=== PATIENT | female | born 1975 | race Caucasian/White ===

== ENCOUNTER 2016-10-13 11:13 | Outpatient (CLI) | payer OTHER ==
[~2016-10-13 11:13] MED LIST: Iopamidol 370 76% 100 ML VIAL ONE
--- NOTE | 2016-10-13 14:17 | CT ---
CT ABDOMEN AND PELVIS WITH ORAL AND IV CONTRAST: HISTORY: Stage IV breast cancer, right upper quadrant pain. FINDINGS: Comparison is made with the exam of 08/22/15. The lung bases are clear. Changes of diffuse fatty infiltration of the liver area again noted. No hepatic mass is seen. The spleen, pancreas, adrenal glands, and kidneys are normal. No calcified g allstones are seen. No free air, free fluid, or lymphadenopathy is noted in the abdomen or pelvis. There are vascular c alcifications without evidence of aneurysmal dilatation of the abdominal aorta. Uterus and ovaries are present. The small bowel loops are not abnormally dilated. There is fecal material in the colo n. Extensive bony metastases are again noted. Bilateral L5 pars articular defects are again seen. The patient is status post appendectomy. IMPRESSION: 1. No evidence of acute process. 2. Fatty liver. 3. Osseous metastatic disease. POS: [facility]
== END 2016-10-13 11:14 | disposition home or self-care (01) ==
LOC: MADCT 11:13
PROVIDERS: ATTEND Internal Medicine
DX: R10.9 Unspecified abdominal pain (principal); K76.0 Fatty (change of) liver, not elsewhere classified
CPT/HCPCS: 74177

== ENCOUNTER 2017-01-21 08:10 | Outpatient (CLI) | payer OTHER ==
[2017-01-21 08:43] LABS: #Basophils 0.1 thou/uL (0.0-0.2); #Eosinphils 0.1 thou/uL (0.0-0.7); #Lymphocytes 1.2 thou/uL (1.20-3.40); #Monocytes 0.4 thou/uL (0.11-0.59); #Neutrophils 1.7 thou/uL (1.40-6.50); %Basophils 1.9 % (0.0-1.0); %Eosinophils 3.2 % (0.0-10.0); Hemoglobin 10.9 g/dL (12.0-16.0); Mean Corpuscular Hemoglobin 30.5 pg (27.0-31.0); Mean Corpuscular Volume 92.4 fl (81.0-99.0); Mean Platelet Volume 7.1 fL (7.4-10.4); Platelet Count 250 thou/uL (130-400); RBC Distribution Width 12.7 % (11.5-14.5); Red Blood Cell (RBC) Count 3.58 mill/uL (4.20-5.40); White Blood Cell (WBC) Count 3.6 thou/uL (4.8-10.8)
[2017-01-21 08:56] LABS: INR-International Normal Ratio 0.9; PTT 29.6 SEC (22.9-36.1); Prothrombin Time 12.9 SEC (12.0-14.7)
[2017-01-21 08:59] LABS: ALT (SGPT) 19 U/L (8-55); AST (SGOT) 19 U/L (5-34); Albumin 3.8 g/dL (3.5-5.0); Alkaline Phosphatase 52 U/L (40-150); Anion Gap 14 mmol/L (10-20); BUN (Urea Nitrogen) 14 mg/dL (7.0-18.7); Bilirubin, Total 0.3 mg/dL (0.2-1.2); Calc. Creatinine Clearance 0 mL/min (70-130); Calcium 9.6 mg/dL (7.8-10.44); Carbon Dioxide 28 mmol/L (22-29); Cardiac Risk 4.5 (Less than 4.5); Chloride 103 mmol/L (98-107); Cholesterol 227 mg/dl (< 200 Desired); Estimated GFR-MDRD 90; Globulin 3.3 g/dL (2.4-3.5); Glucose 90 mg/dL (70-105); HDL Cholesterol 50 mg/dL (>60 Neg Risk); LDL Cholesterol, Calculated 144 mg/dL; Potassium 4.8 mmol/L (3.5-5.1); Protein, Total 7.1 g/dL (6.0-8.3); Sodium 140 mmol/L (136-145); Triglycerides 164 mg/dL (Less than 150)
[2017-01-21 09:21] LABS: Free T4 (Free Thyroxine) 0.91 ng/dL (0.70-1.48); Thyroid Stimulating Hormone 1.2308 uIU/mL (0.35-4.94)
[2017-01-21 16:53] LABS: Iron 56 ug/dL (50-170); Iron Binding Capacity, Total 320 mcg/dL (265-497)
[2017-01-21 17:13] LABS: Ferritin 173.37 ng/mL (10-291)
== END 2017-01-21 08:11 | disposition home or self-care (01) ==
LOC: MADLAB 08:10
PROVIDERS: ATTEND Internal Medicine
DX: T14.8 Other injury of unspecified body region (principal); E03.9 Hypothyroidism, unspecified
CPT/HCPCS: 36415; 80053; 80061; 82607; 82728; 83540; 83550; 84439; 84443; 85025; 85610; 85730

== ENCOUNTER 2017-05-26 18:14 | Emergency (ER) | payer OTHER ==
[2017-05-26] MEDS ORDERED: Ketorolac Tromethamine 60 MG/2 ML VIAL ONE (18:19)
[2017-05-26] MEDS ORDERED: Diazepam 5 MG TAB ONE ×2 (18:19→19:47)
[2017-05-26] MEDS ORDERED: MORPHINE 10 MG/ML SYRINGE ONE (18:23)
[2017-05-26] MEDS ORDERED: Ondansetron ODT 4 MG TAB ONE (18:24)
[2017-05-26] MEDS ORDERED: diphenhydrAMINE 25 MG CAP ONE (19:47)
== END 2017-05-26 19:50 | disposition home or self-care (01) ==
LOC: MADERS 18:14
DX: M54.5 Low back pain (principal); I10 Essential (primary) hypertension; F41.9 Anxiety disorder, unspecified; F32.9 Major depressive disorder, single episode, unspecified; Z87.891 Personal history of nicotine dependence; Z79.899 Other long term (current) drug therapy
CPT/HCPCS: 96372; J1885; J2270; Q0162

== ENCOUNTER 2017-09-18 20:07 | Emergency (ER) | payer OTHER ==
[2017-09-18] MEDS ORDERED: MORPHINE 10 MG/ML SYRINGE ONE (21:58)
[2017-09-18] MEDS ORDERED: Diazepam 5 MG TAB ONE (21:58)
[2017-09-18] MEDS ORDERED: Ketorolac Tromethamine 30 MG/ML VIAL ONE (21:59)
[2017-09-18] MEDS ORDERED: Ondansetron HCl/PF 4 MG/2 ML Vial ONE (21:59)
--- NOTE | 2017-09-18 22:02 | RAD ---
FRONTAL RADIOGRAPH CHEST: 09/18/17 COMPARISON: 12/22/16 HISTORY: Metastatic disease. FINDINGS: No pneumothorax, pleural fluid, focal consolidation, or alveolar edema. Heart and mediastinal contour s appear grossly unremarkable. There are multiple focal sclerotic lesions within the proximal left humerus suggesting osseous metast atic disease. IMPRESSION: Osseous metastatic disease suspected. CT Chest could assess for pulmonary parenchymal metastatic dise ase. No focal consolidation or alveolar edema. POS: [facility]
[2017-09-18 22:04] LABS: #Basophils 0.1 thou/uL (0.0-0.2); #Eosinphils 0.2 thou/uL (0.0-0.7); #Lymphocytes 1.7 thou/uL (1.20-3.40); #Monocytes 0.7 thou/uL (0.11-0.59); #Neutrophils 3.3 thou/uL (1.40-6.50); %Basophils 2.1 % (0.0-1.0); %Eosinophils 2.6 % (0.0-10.0); %Lymphocytes 28.7 % (21.0-51.0); %Monocytes 11.5 % (0.0-10.0); %Neutrophils 55.1 % (42.0-75.0); Hemoglobin 11.6 g/dL (12.0-16.0); Mean Corpuscular Hemoglobin 30.3 pg (27.0-31.0); Mean Corpuscular Volume 91.9 fl (81.0-99.0); Mean Platelet Volume 7.2 fL (7.4-10.4); Platelet Count 260 thou/uL (130-400); RBC Distribution Width 12.2 % (11.5-14.5); Red Blood Cell (RBC) Count 3.83 mill/uL (4.20-5.40); White Blood Cell (WBC) Count 6.1 thou/uL (4.8-10.8)
[2017-09-18 22:15] LABS: INR-International Normal Ratio 0.9; PTT 28.6 SEC (22.9-36.1); Prothrombin Time 12.3 SEC (12.0-14.7)
[2017-09-18 22:30] LABS: ALT (SGPT) 17 U/L (8-55); AST (SGOT) 29 U/L (5-34); Albumin 4.5 g/dL (3.5-5.0); Alkaline Phosphatase 63 U/L (40-150); Anion Gap 18 mmol/L (10-20); BUN (Urea Nitrogen) 12 mg/dL (7.0-18.7); Bilirubin, Total 0.2 mg/dL (0.2-1.2); CK (CPK) 75 U/L (29-168); Calc. Creatinine Clearance 0 mL/min (70-130); Calcium 9.6 mg/dL (7.8-10.44); Carbon Dioxide 22 mmol/L (22-29); Chloride 102 mmol/L (98-107); Estimated GFR-MDRD 88; Globulin 3.3 g/dL (2.4-3.5); Glucose 96 mg/dL (70-105); Potassium 4.3 mmol/L (3.5-5.1); Protein, Total 7.8 g/dL (6.0-8.3); Sodium 138 mmol/L (136-145)
[2017-09-19] MEDS ORDERED: MORPHINE 10 MG/ML SYRINGE ONE (00:48)
== END 2017-09-19 02:16 | disposition short-term general hospital (02) ==
LOC: MADERS 20:07
DX: C50.919 Malignant neoplasm of unspecified site of unspecified female breast (principal); C79.51 Secondary malignant neoplasm of bone; I10 Essential (primary) hypertension; F41.9 Anxiety disorder, unspecified; F32.9 Major depressive disorder, single episode, unspecified; Z79.899 Other long term (current) drug therapy
CPT/HCPCS: 71045; 80053; 82550; 83880; 85025; 85610; 85730; 93005; 94760; 96374; 96375; 96376; J1885; J2270; J2405

== ENCOUNTER 2018-01-06 11:50 | Emergency (ER) | payer OTHER ==
--- NOTE | 2018-01-06 13:05 | RAD ---
RIGHT FOOT THREE VIEWS: HISTORY: Right foot pain with trauma. COMPARISON: 06/13/2016 FINDINGS: Three views of the right foot show no evidence of acute fracture or dislocation. No degenerative marcial nges are seen. No soft tissue swelling is present. IMPRESSION: No evidence of acute osseous abnormality. POS: [facility]
== END 2018-01-06 13:29 | disposition home or self-care (01) ==
LOC: MADERS 11:50
DX: M79.671 Pain in right foot (principal); I10 Essential (primary) hypertension; F41.9 Anxiety disorder, unspecified; F32.9 Major depressive disorder, single episode, unspecified; Z79.899 Other long term (current) drug therapy

== ENCOUNTER 2018-04-04 08:40 | Outpatient (CLI) | payer OTHER ==
[2018-04-04 09:39] LABS: ALT (SGPT) 15 U/L (8-55); AST (SGOT) 16 U/L (5-34); Albumin 4.2 g/dL (3.5-5.0); Alkaline Phosphatase 49 U/L (40-150); Anion Gap 13 mmol/L (10-20); BUN (Urea Nitrogen) 11 mg/dL (7.0-18.7); Bilirubin, Total 0.3 mg/dL (0.2-1.2); Calc. Creatinine Clearance 0 mL/min (70-130); Calcium 9.6 mg/dL (7.8-10.44); Carbon Dioxide 27 mmol/L (22-29); Chloride 102 mmol/L (98-107); Estimated GFR-MDRD 87; Globulin 2.9 g/dL (2.4-3.5); Glucose 87 mg/dL (70-105); Magnesium 2.2 mg/dL (1.6-2.6); Potassium 4.2 mmol/L (3.5-5.1); Protein, Total 7.1 g/dL (6.0-8.3); Sodium 138 mmol/L (136-145)
[2018-04-04 10:02] LABS: Band 1 % (5-11); Hemoglobin 10.1 g/dL (12.0-16.0); Lymphocytes 36 % (21-51); MDiff Complete? YES; Manual Diff?? YES; Mean Corpuscular HGB CONC 33.7 g/dL (32.0-36.0); Mean Platelet Volume 5.9 fL (7.4-10.4); Monocytes 14 % (0-10); Neutrophil 42 % (42-75); Platelet Count 253 thou/uL (130-400); RBC Distribution Width 13.5 % (11.5-14.5); Red Blood Cell (RBC) Count 3.03 mill/uL (4.20-5.40); White Blood Cell (WBC) Count 3.2 thou/uL (4.8-10.8)
[2018-04-04 10:03] LABS: Anisocytosis SLIGHT = 6-15 cells (100X) (0-5/hpf); Eosinophils 7 % (0-10); PLT Morphology Comment Appears Adequate
== END 2018-04-04 08:41 | disposition home or self-care (01) ==
LOC: MADLAB 08:40
DX: C50.919 Malignant neoplasm of unspecified site of unspecified female breast (principal)
CPT/HCPCS: 36415; 80053; 83735; 85025

== ENCOUNTER 2018-05-03 09:11 | Outpatient (CLI) | payer OTHER ==
[2018-05-03 10:37] LABS: Hemoglobin 10.1 g/dL (12.0-16.0); Manual Diff?? YES; Mean Corpuscular HGB CONC 34.5 g/dL (32.0-36.0); Mean Corpuscular Hemoglobin 33.4 pg (27.0-31.0); Mean Corpuscular Volume 96.7 fL (78.0-98.0); Mean Platelet Volume 6.1 fL (7.4-10.4); Platelet Count 279 thou/uL (130-400); RBC Distribution Width 14.2 % (11.5-14.5); Red Blood Cell (RBC) Count 3.04 mill/uL (4.20-5.40); White Blood Cell (WBC) Count 2.1 thou/uL (4.8-10.8)
[2018-05-03 10:38] LABS: Eosinophils 3 % (0-10); Lymphocytes 42 % (21-51); MDiff Complete? YES; Monocytes 13 % (0-10); Neutrophil 42 % (42-75)
[2018-05-03 10:40] LABS: Anisocytosis SLIGHT = 6-15 cells (100X) (0-5/hpf); Poikilocytosis SLIGHT = 6-15 cells (100X) (0-5/hpf)
[2018-05-03 10:41] LABS: PLT Morphology Comment Appears Adequate
== END 2018-05-03 09:12 | disposition home or self-care (01) ==
LOC: MADLAB 09:11
PROVIDERS: ATTEND Internal Medicine
DX: C50.919 Malignant neoplasm of unspecified site of unspecified female breast (principal)
CPT/HCPCS: 36415; 85025

== ENCOUNTER 2018-05-10 07:33 | Outpatient (CLI) | payer OTHER ==
[2018-05-10 09:21] LABS: Hemoglobin 10.2 g/dL (12.0-16.0); Mean Corpuscular HGB CONC 33.4 g/dL (32.0-36.0); Mean Corpuscular Hemoglobin 32.6 pg (27.0-31.0); Mean Corpuscular Volume 97.6 fL (78.0-98.0); Mean Platelet Volume 6.6 fL (7.4-10.4); Platelet Count 275 thou/uL (130-400); RBC Distribution Width 14.4 % (11.5-14.5); Red Blood Cell (RBC) Count 3.14 mill/uL (4.20-5.40); White Blood Cell (WBC) Count 2.9 thou/uL (4.8-10.8)
[2018-05-10 09:22] LABS: Band 2 % (5-11); Eosinophils 1 % (0-10); Lymphocytes 27 % (21-51); MDiff Complete? YES; Manual Diff?? YES; Monocytes 8 % (0-10); Neutrophil 62 % (42-75)
[2018-05-10 09:23] LABS: Anisocytosis SLIGHT = 6-15 cells (100X) (0-5/hpf); PLT Morphology Comment Appears Adequate
== END 2018-05-10 07:34 | disposition home or self-care (01) ==
LOC: MADLAB 07:33
PROVIDERS: ATTEND Internal Medicine
DX: C50.919 Malignant neoplasm of unspecified site of unspecified female breast (principal)
CPT/HCPCS: 36415; 85025

== ENCOUNTER 2018-07-11 11:51 | Outpatient (CLI) | payer OTHER ==
[2018-07-11 12:18] LABS: Hemoglobin 10.8 g/dL (12.0-16.0); Mean Corpuscular HGB CONC 34.2 g/dL (32.0-36.0); Mean Corpuscular Hemoglobin 33.4 pg (27.0-31.0); Mean Corpuscular Volume 97.5 fL (78.0-98.0); Mean Platelet Volume 5.4 fL (7.4-10.4); Platelet Count 264 thou/uL (130-400); RBC Distribution Width 14.5 % (11.5-14.5); Red Blood Cell (RBC) Count 3.25 mill/uL (4.20-5.40); White Blood Cell (WBC) Count 2.1 thou/uL (4.8-10.8)
[2018-07-11 13:11] LABS: Manual Diff?? YES
[2018-07-11 13:12] LABS: Anisocytosis SLIGHT = 6-15 cells (100X) (0-5/hpf); Band 2 % (5-11); Eosinophils 4 % (0-10); Lymphocytes 46 % (21-51); MDiff Complete? YES; Monocytes 14 % (0-10); Neutrophil 34 % (42-75); Nucleated RBC 2 % (0); PLT Morphology Comment Appears Adequate
== END 2018-07-11 11:52 | disposition home or self-care (01) ==
LOC: MADLAB 11:51
PROVIDERS: ATTEND Internal Medicine
DX: C50.919 Malignant neoplasm of unspecified site of unspecified female breast (principal)
CPT/HCPCS: 36415; 85025

== ENCOUNTER 2018-07-18 07:33 | Outpatient (CLI) | payer OTHER ==
[2018-07-18 08:20] LABS: Hemoglobin 11.7 g/dL (12.0-16.0); Mean Corpuscular HGB CONC 32.9 g/dL (32.0-36.0); Mean Corpuscular Hemoglobin 32.6 pg (27.0-31.0); Mean Platelet Volume 6.3 fL (7.4-10.4); Platelet Count 301 thou/uL (130-400); RBC Distribution Width 14.2 % (11.5-14.5); Red Blood Cell (RBC) Count 3.57 mill/uL (4.20-5.40); White Blood Cell (WBC) Count 3.1 thou/uL (4.8-10.8)
[2018-07-18 09:24] LABS: MDiff Complete? YES; Manual Diff?? YES
[2018-07-18 09:25] LABS: Anisocytosis SLIGHT = 6-15 cells (100X) (0-5/hpf); Band 2 % (5-11); Eosinophils 2 % (0-10); Lymphocytes 42 % (21-51); Monocytes 11 % (0-10); Neutrophil 43 % (42-75); Platelet Morphology Comment Appears Adequate
== END 2018-07-18 07:34 | disposition home or self-care (01) ==
LOC: MADLAB 07:33
PROVIDERS: ATTEND Internal Medicine
DX: C50.919 Malignant neoplasm of unspecified site of unspecified female breast (principal)
CPT/HCPCS: 36415; 85025

== ENCOUNTER 2020-01-08 10:57 | Emergency (ER) | payer OTHER ==
[2020-01-08] MEDS ORDERED: Clindamycin/D5W 900 mg/50 ml Premix Bag ONE ×2 (12:21→20:49)
[2020-01-08 12:27] LABS: #Lymphocytes 0.6 thou/uL (1.20-3.40); #Monocytes 0.3 thou/uL (0.11-0.59); #Neutrophils 2.7 thou/uL (1.40-6.50); %Eosinophils 0.8 % (0.0-10.0); %Lymphocytes 16.1 % (21.0-51.0); %Monocytes 8.2 % (0.0-10.0); %Neutrophils 73.8 % (42.0-75.0); Hemoglobin 11.1 g/dL (12.0-16.0); Mean Corpuscular HGB CONC 32.6 g/dL (32.0-36.0); Mean Corpuscular Hemoglobin 32.4 pg (27.0-31.0); Mean Corpuscular Volume 99.4 fL (78.0-98.0); Mean Platelet Volume 6.1 fL (7.4-10.4); Platelet Count 227 thou/uL (130-400); Red Blood Cell (RBC) Count 3.44 mill/uL (4.20-5.40); White Blood Cell (WBC) Count 3.6 thou/uL (4.8-10.8)
[2020-01-08] MEDS ORDERED: Cefepime 2 GM VIAL ONE ×2 (12:33→21:15)
[2020-01-08] MEDS ORDERED: Sodium Chloride 0.9% 100 ML ONE ×2 (12:33→21:15)
[2020-01-08] MEDS ORDERED: Morphine 4 MG/ML VIAL ONE ×3 (12:33→21:00)
[2020-01-08] MEDS ORDERED: diphenhydrAMINE 50 MG/ML VIAL ONE (12:34)
[2020-01-08 12:43] LABS: ALT (SGPT) 20 U/L (8-55); AST (SGOT) 18 U/L (5-34); Albumin 4.6 g/dL (3.5-5.0); Alkaline Phosphatase 40 U/L (40-110); Anion Gap 16 mmol/L (10-20); BUN (Urea Nitrogen) 11 mg/dL (7.0-18.7); Bilirubin, Total 0.4 mg/dL (0.2-1.2); Calc. Creatinine Clearance 0 mL/min (70-130); Calcium 9.4 mg/dL (7.8-10.44); Carbon Dioxide 23 mmol/L (22-29); Chloride 102 mmol/L (98-107); Estimated GFR-MDRD 78; Globulin 3.1 g/dL (2.4-3.5); Glucose 94 mg/dL (70-105); Potassium 4.1 mmol/L (3.5-5.1); Protein, Total 7.7 g/dL (6.0-8.3); Sodium 137 mmol/L (136-145)
[2020-01-08] MEDS ORDERED: Ondansetron PF 4 MG/2 ML Vial ONE ×2 (12:45→21:04)
[2020-01-08] MEDS ORDERED: Acetaminophen 500 MG TAB ONE (12:45)
[2020-01-08] MEDS ORDERED: Vancomycin HCl 750 MG VIAL ONE (13:50)
[2020-01-08] MEDS ORDERED: Sodium Chloride 0.9% 1,000 ML ONE (16:06)
[2020-01-08] MEDS ORDERED: traZODone HCl 50 MG TAB ONE (21:00)
== END 2020-01-08 22:37 | disposition short-term general hospital (02) ==
LOC: MADERS 10:57
DX: A41.9 Sepsis, unspecified organism (principal); N61.0 Mastitis without abscess; L03.313 Cellulitis of chest wall; C79.51 Secondary malignant neoplasm of bone; F41.9 Anxiety disorder, unspecified; F32.9 Major depressive disorder, single episode, unspecified; Z79.899 Other long term (current) drug therapy
CPT/HCPCS: 80053; 83605; 85025; 87040; 96361; 96365; 96366; 96367; 96375; 96376; J0692; J1200; J2270; J2405; J3370; J3490; J7050

== ENCOUNTER 2020-05-07 11:45 | Outpatient (CLI) | payer OTHER | END 2020-05-07 11:46 | disposition home or self-care (01) | LOC: MADEKG 11:45 | PROVIDERS: ATTEND Anesthesiology | DX: G89.3 Neoplasm related pain (acute) (chronic) (principal) | CPT/HCPCS: 93005; 93010 ==

== ENCOUNTER 2021-10-31 21:13 | Emergency (ER) | payer BC ==
[~2021-10-31 21:13] MED LIST changes: -Iopamidol 370 76% 100 ML VIAL ONE; +Iopamidol 370 76% 125 ML VIAL FS ONE; +Sodium Chloride 0.9% 100 ML BAG ONE
[2021-10-31] MEDS ORDERED: Sodium Chloride 0.9% 1,000 ML ONE (21:46)
[2021-10-31] MEDS ORDERED: methylPREDNISolone Sod Succ/PF 125 MG/2 ML VIAL ONE (21:46)
[2021-10-31] MEDS ORDERED: Famotidine/PF 20 mg/2ml Vial ONE (21:46)
[2021-10-31] MEDS ORDERED: diphenhydrAMINE 50 MG/ML VIAL ONE (21:46)
[2021-10-31 21:54] LABS: #Eosinphils 0.1 thou/uL (0.0-0.7); #Lymphocytes 0.7 thou/uL (1.20-3.40); #Monocytes 0.2 thou/uL (0.11-0.59); #Neutrophils 2.2 thou/uL (1.40-6.50); %Basophils 1.5 % (0.0-1.0); %Lymphocytes 20.9 % (21.0-51.0); %Monocytes 6.8 % (0.0-10.0); %Neutrophils 68.9 % (42.0-75.0); Hemoglobin 10.8 g/dL (12.0-16.0); Mean Corpuscular HGB CONC 35.5 g/dL (32.0-36.0); Mean Corpuscular Hemoglobin 35.7 pg (27.0-31.0); Mean Corpuscular Volume 100.5 fL (78.0-98.0); Mean Platelet Volume 7.3 fL (7.4-10.4); Platelet Count 217 thou/uL (130-400); RBC Distribution Width 12.8 % (11.5-14.5); RBC Morphology Normal; Red Blood Cell (RBC) Count 3.03 mill/uL (4.20-5.40); White Blood Cell (WBC) Count 3.1 thou/uL (4.8-10.8)
[2021-10-31 21:58] LABS: AST (SGOT) 51 U/L (5-34); Anion Gap 19 mmol/L (10-20); Bilirubin, Total 0.3 mg/dL (0.2-1.2); Calcium 9.4 mg/dL (7.8-10.44); Carbon Dioxide 20 mmol/L (22-29); Chloride 106 mmol/L (98-107); INR-International Normal Ratio 0.9; PTT 27.8 sec (22.9-36.1); Potassium 4.1 mmol/L (3.5-5.1); Protein, Total 7.3 g/dL (6.0-8.3); Prothrombin Time 12.1 sec (12.0-14.7); Sodium 141 mmol/L (136-145)
[2021-10-31 22:01] LABS: D-Dimer Test 0.57 *mcg/mL (0.27-0.43)
[2021-10-31 22:11] LABS: ALT (SGPT) 59 U/L (8-55); Albumin 4.2 g/dL (3.5-5.0); Alkaline Phosphatase 70 U/L (40-110); BUN (Urea Nitrogen) 12 mg/dL (7.0-18.7); CK (CPK) 115 U/L (29-168); Calc. Creatinine Clearance 0 mL/min (70-130); Globulin 3.1 g/dL (2.4-3.5); Glucose 151 mg/dL (70-105)
[2021-10-31 22:13] LABS: CKMB 3.7 ng/mL (0-6.6)
[2021-10-31] MEDS ORDERED: Aspirin Chewable 81 MG TAB ONE (22:24)
== END 2021-11-01 00:49 | disposition short-term general hospital (02) ==
LOC: MADERS 21:13
DX: R07.89 Other chest pain (principal); R79.89 Other specified abnormal findings of blood chemistry; C50.919 Malignant neoplasm of unspecified site of unspecified female breast; I10 Essential (primary) hypertension; Z87.891 Personal history of nicotine dependence; Z79.899 Other long term (current) drug therapy
CPT/HCPCS: 71045; 71275; 80053; 82550; 82553; 83880; 84484; 85025; 85379; 85610; 85730; 93005; 96374; 96375; J1200; J2930; J7050; Q9967; S0028

== ENCOUNTER 2021-11-18 06:22 | Emergency (ER) | payer BC ==
[2021-11-18] MEDS ORDERED: Ondansetron ODT 4 MG TAB ONE (06:48)
[2021-11-18 07:35] LABS: Hemoglobin 11.2 g/dL (12.0-16.0); Mean Corpuscular HGB CONC 33.5 g/dL (32.0-36.0); Mean Corpuscular Hemoglobin 33.6 pg (27.0-31.0); Mean Corpuscular Volume 100.4 fL (78.0-98.0); Mean Platelet Volume 6.5 fL (7.4-10.4); Platelet Count 173 thou/uL (130-400); RBC Distribution Width 12.1 % (11.5-14.5); Red Blood Cell (RBC) Count 3.32 mill/uL (4.20-5.40)
[2021-11-18 07:43] LABS: ALT (SGPT) 136 U/L (8-55); AST (SGOT) 78 U/L (5-34); Albumin 4.3 g/dL (3.5-5.0); Alkaline Phosphatase 33 U/L (40-110); Anion Gap 19 mmol/L (10-20); BUN (Urea Nitrogen) 16 mg/dL (7.0-18.7); Bilirubin, Total 0.8 mg/dL (0.2-1.2); CK (CPK) 53 U/L (29-168); Calc. Creatinine Clearance 0 mL/min (70-130); Calcium 9.8 mg/dL (7.8-10.44); Carbon Dioxide 24 mmol/L (22-29); Chloride 101 mmol/L (98-107); Globulin 2.9 g/dL (2.4-3.5); Glucose 127 mg/dL (70-105); Lipase 21 U/L (8-78); Potassium 3.7 mmol/L (3.5-5.1); Protein, Total 7.2 g/dL (6.0-8.3); Sodium 140 mmol/L (136-145)
[2021-11-18 07:47] LABS: Band 4 % (5-11); Lymphocytes 28 % (21-51); MDiff Complete? YES; Manual Diff?? YES; Monocytes 10 % (0-10); Neutrophil 58 % (42-75)
[2021-11-18 07:48] LABS: Anisocytosis SLIGHT = 6-15 cells (100X) (0-5/hpf)
[2021-11-18] MEDS ORDERED: Ketorolac Tromethamine 30 MG/ML VIAL ONE ×3 (07:48→08:56)
[2021-11-18 07:49] LABS: Platelet Morphology Comment Appears Adequate
[2021-11-18] MEDS ORDERED: Magnesium 2 GM/50 ML BAG (IN WATER) ONE (08:45)
[2021-11-18] MEDS ORDERED: diphenhydrAMINE 50 MG/ML VIAL ONE ×2 (08:45→08:56)
== END 2021-11-18 09:40 | disposition home or self-care (01) ==
LOC: MADERS 06:22
DX: G43.909 Migraine, unspecified, not intractable, without status migrainosus (principal); Z85.830 Personal history of malignant neoplasm of bone; I10 Essential (primary) hypertension; Z85.3 Personal history of malignant neoplasm of breast; F17.210 Nicotine dependence, cigarettes, uncomplicated; Z79.899 Other long term (current) drug therapy
CPT/HCPCS: 70450; 80053; 82550; 83605; 83690; 85025; 94760; 96361; 96365; 96375; 96376; J1200; J1885; J3475; Q0162

== ENCOUNTER 2021-11-26 05:18 | Emergency (ER) | payer BC ==
[2021-11-26] MEDS ORDERED: Ondansetron PF 4 MG/2 ML Vial ONE (06:08)
[2021-11-26] MEDS ORDERED: Sodium Chloride 0.9% 2,000 ML ONE (06:09)
[2021-11-26 06:39] LABS: ALT (SGPT) 104 U/L (8-55); AST (SGOT) 58 U/L (5-34); Albumin 4.6 g/dL (3.5-5.0); Alkaline Phosphatase 35 U/L (40-110); Anion Gap 22 mmol/L (10-20); BUN (Urea Nitrogen) 15 mg/dL (7.0-18.7); Bilirubin, Total 0.9 mg/dL (0.2-1.2); Calc. Creatinine Clearance 0 mL/min (70-130); Calcium 9.6 mg/dL (7.8-10.44); Carbon Dioxide 23 mmol/L (22-29); Chloride 99 mmol/L (98-107); Globulin 3.1 g/dL (2.4-3.5); Glucose 123 mg/dL (70-105); Hemoglobin 11.5 g/dL (12.0-16.0); Lipase 12 U/L (8-78); Mean Corpuscular HGB CONC 33.6 g/dL (32.0-36.0); Mean Corpuscular Hemoglobin 32.4 pg (27.0-31.0); Mean Corpuscular Volume 96.4 fL (78.0-98.0); Mean Platelet Volume 6.6 fL (7.4-10.4); Platelet Count 260 thou/uL (130-400); Potassium 3.8 mmol/L (3.5-5.1); Protein, Total 7.7 g/dL (6.0-8.3); RBC Distribution Width 11.6 % (11.5-14.5); Red Blood Cell (RBC) Count 3.55 mill/uL (4.20-5.40); Sodium 140 mmol/L (136-145); White Blood Cell (WBC) Count 3.6 thou/uL (4.8-10.8)
[2021-11-26 06:40] LABS: #Lymphocytes 0.8 thou/uL (1.20-3.40); #Monocytes 0.5 thou/uL (0.11-0.59); #Neutrophils 2.2 thou/uL (1.40-6.50); %Basophils 2.5 % (0.0-1.0); %Eosinophils 0.8 % (0.0-10.0); %Lymphocytes 22.3 % (21.0-51.0); %Monocytes 14.2 % (0.0-10.0); %Neutrophils 60.3 % (42.0-75.0)
[2021-11-26 06:41] LABS: #Basophils 0.1 thou/uL (0.0-0.2)
== END 2021-11-26 08:08 | disposition home or self-care (01) ==
LOC: MADERS 05:18
DX: R11.2 Nausea with vomiting, unspecified (principal); E86.0 Dehydration; I10 Essential (primary) hypertension; Z87.891 Personal history of nicotine dependence; Z85.3 Personal history of malignant neoplasm of breast; Z85.830 Personal history of malignant neoplasm of bone; Z79.899 Other long term (current) drug therapy
CPT/HCPCS: 74176; 80053; 83605; 83690; 85025; 96361; 96374; J2405; J7050

== ENCOUNTER 2021-12-18 00:07 | Emergency (ER) | payer BC ==
[2021-12-18] MEDS ORDERED: Nitroglycerin 0.4 MG TAB 1 EACH ONE (00:32)
[2021-12-18] MEDS ORDERED: methylPREDNISolone Acetate 40 mg/ml Vial ONE (00:33)
[2021-12-18] MEDS ORDERED: Aspirin 325 MG TAB ONE (00:33)
[2021-12-18] MEDS ORDERED: Famotidine/PF 20 mg/2ml Vial ONE (00:34)
[2021-12-18] MEDS ORDERED: diphenhydrAMINE 50 MG/ML VIAL ONE (00:34)
[2021-12-18 00:44] LABS: #Basophils 0.1 thou/uL (0.0-0.2); #Eosinphils 0.2 thou/uL (0.0-0.7); #Lymphocytes 0.7 thou/uL (1.20-3.40); #Monocytes 0.3 thou/uL (0.11-0.59); #Neutrophils 1.7 thou/uL (1.40-6.50); %Basophils 1.8 % (0.0-1.0); %Eosinophils 6.8 % (0.0-10.0); %Lymphocytes 23.5 % (21.0-51.0); %Monocytes 8.9 % (0.0-10.0); %Neutrophils 59.1 % (42.0-75.0); Hemoglobin 9.5 g/dL (12.0-16.0); Mean Corpuscular HGB CONC 33.2 g/dL (32.0-36.0); Mean Corpuscular Hemoglobin 31.7 pg (27.0-31.0); Mean Corpuscular Volume 95.5 fL (78.0-98.0); Mean Platelet Volume 7.1 fL (7.4-10.4); Platelet Count 137 thou/uL (130-400); RBC Distribution Width 12.5 % (11.5-14.5); Red Blood Cell (RBC) Count 2.99 mill/uL (4.20-5.40); White Blood Cell (WBC) Count 2.9 thou/uL (4.8-10.8)
[2021-12-18 01:10] LABS: AST (SGOT) 32 U/L (5-34); Bilirubin, Total 0.2 mg/dL (0.2-1.2); Calcium 8.6 mg/dL (7.8-10.44); Chloride 109 mmol/L (98-107); Potassium 3.9 mmol/L (3.5-5.1); Sodium 142 mmol/L (136-145)
[2021-12-18 01:33] LABS: Bilirubin Negative (Negative); Blood, Urine Negative (Negative); Clarity Clear (Clear); Glucose, Urine (Dipstick) Negative (Negative); Ketone, Urine Negative (Negative); Leukocyte Trace (Negative); Nitrite Negative (Negative); Protein, Urine (Dipstick) Negative (Neg-Trace); Urobilinogen 0.2 mg/dL (Less than 2); pH, Urine 6.5 (5.0-9.0)
[2021-12-18 01:36] LABS: Pregnancy Test - Urine (BHCG) Negative (Negative); Pregu Control Background? CLEAR/WHITE (CLR/WHITE); Pregu Control Bar Appear? YES (CONTROL BAR); Specific Gravity 1.005 (1.002-1.036)
[2021-12-18 01:37] LABS: ALT (SGPT) 37 U/L (8-55); Albumin 4.1 g/dL (3.5-5.0); Alkaline Phosphatase 62 U/L (40-110); BUN (Urea Nitrogen) 11 mg/dL (7.0-18.7); Calc. Creatinine Clearance 0 mL/min (70-130); Carbon Dioxide 21 mmol/L (22-29); Globulin 2.4 g/dL (2.4-3.5); Glucose 156 mg/dL (70-105); Protein, Total 6.5 g/dL (6.0-8.3)
[2021-12-18 01:43] LABS: Anion Gap 16 mmol/L (10-20)
[2021-12-18 01:46] LABS: Bacteria/HPF None Seen HPF (None Seen); RBC/HPF 0-3 HPF (0-3); Squamous Epithelial None Seen HPF (0-3); Transitional Epithelial 0-3 HPF (None Seen)
[2021-12-18] MEDS ORDERED: Sodium Chloride 0.9% 100 ML BAG ONE (07:33)
== END 2021-12-18 03:41 | disposition home or self-care (01) ==
LOC: MADERS 00:07
DX: R07.2 Precordial pain (principal); D64.9 Anemia, unspecified; R79.1 Abnormal coagulation profile; R60.0 Localized edema; Z85.830 Personal history of malignant neoplasm of bone; Z85.3 Personal history of malignant neoplasm of breast; I10 Essential (primary) hypertension; Z87.891 Personal history of nicotine dependence; Z79.899 Other long term (current) drug therapy
CPT/HCPCS: 71045; 71275; 80053; 81003; 81015; 81025; 83880; 84484; 85025; 85379; 93005; 94760; 96374; 96375; J1200; J2920; S0028

== ENCOUNTER 2022-03-19 21:03 | Emergency (ER) | payer BC ==
[2022-03-19 22:53] LABS: #Basophils 0.1 thou/uL (0.0-0.2); #Eosinphils 0.1 thou/uL (0.0-0.7); #Lymphocytes 0.9 thou/uL (1.20-3.40); #Monocytes 0.3 thou/uL (0.11-0.59); #Neutrophils 3.6 thou/uL (1.40-6.50); %Basophils 1.4 % (0.0-1.0); %Eosinophils 2.7 % (0.0-10.0); %Lymphocytes 17.2 % (21.0-51.0); %Monocytes 6.1 % (0.0-10.0); %Neutrophils 72.6 % (42.0-75.0); Hemoglobin 7.7 g/dL (12.0-16.0); Mean Corpuscular HGB CONC 31.9 g/dL (32.0-36.0); Mean Corpuscular Hemoglobin 25.6 pg (27.0-31.0); Mean Corpuscular Volume 80.4 fL (78.0-98.0); Mean Platelet Volume 7.7 fL (7.4-10.4); Platelet Count 192 thou/uL (130-400); RBC Distribution Width 15.8 % (11.5-14.5); Red Blood Cell (RBC) Count 3.01 mill/uL (4.20-5.40); White Blood Cell (WBC) Count 4.9 thou/uL (4.8-10.8)
[2022-03-19] MEDS ORDERED: Acetaminophen 500 MG TAB ONE (23:11)
[2022-03-19] MEDS ORDERED: Sodium Chloride 0.9% 250 ML 0 ML ONE (23:11)
[2022-03-19 23:15] LABS: ALT (SGPT) 53 U/L (8-55); AST (SGOT) 35 U/L (5-34); Albumin 4.2 g/dL (3.5-5.0); Alkaline Phosphatase 54 U/L (40-110); Anion Gap 16 mmol/L (10-20); BUN (Urea Nitrogen) 7 mg/dL (7.0-18.7); Bilirubin, Total 0.4 mg/dL (0.2-1.2); Calc. Creatinine Clearance 0 mL/min (70-130); Calcium 9.6 mg/dL (7.8-10.44); Carbon Dioxide 24 mmol/L (22-29); Chloride 103 mmol/L (98-107); Estimated GFR 95; Globulin 3.1 g/dL (2.4-3.5); Glucose 134 mg/dL (70-105); Potassium 3.2 mmol/L (3.5-5.1); Protein, Total 7.3 g/dL (6.0-8.3); Sodium 140 mmol/L (136-145)
[2022-03-19] MEDS ORDERED: Dextrose 5% in Water 250 ML ONE (23:24)
[2022-03-20] MEDS ORDERED: diphenhydrAMINE 50 MG/ML VIAL ONE (00:19)
== END 2022-03-20 00:38 | disposition short-term general hospital (02) ==
LOC: MADERS 21:03
DX: C50.919 Malignant neoplasm of unspecified site of unspecified female breast (principal); L03.90 Cellulitis, unspecified; D84.9 Immunodeficiency, unspecified; I10 Essential (primary) hypertension; Z87.891 Personal history of nicotine dependence; Z79.899 Other long term (current) drug therapy
CPT/HCPCS: 80053; 83605; 85025; 87040; 96365; 96375; J1200; J3370; J7050; J7070

== ENCOUNTER 2023-02-09 21:08 | Emergency (ER) | payer BC ==
[2023-02-09] MEDS ORDERED: Lactated Ringer's 1,000 ML ONE (21:34)
[2023-02-09 21:40] LABS: Band 4 % (5-11); Eosinophils 1 % (0-10); Hematocrit 21.9 % (36.0-47.0); Hemoglobin 7.2 g/dL (12.0-16.0); Lymphocytes 13 % (21-51); MDiff Complete? YES; Mean Corpuscular HGB CONC 32.8 g/dL (32.0-36.0); Mean Corpuscular Hemoglobin 31.4 pg (27.0-31.0); Mean Corpuscular Volume 95.6 fl (78.0-98.0); Mean Platelet Volume 7.5 fL (7.4-10.4); Monocytes 15 % (0-10); Neutrophil 67 % (42-75); Platelet Count 164 10x3/uL (130-400); RBC Distribution Width 15.5 % (11.5-14.5); Red Blood Cell (RBC) Count 2.29 mill/uL (4.20-5.40); White Blood Cell (WBC) Count 4.2 10x3/uL (4.8-10.8)
[2023-02-09 22:01] LABS: ALT (SGPT) 49 U/L (8-55); AST (SGOT) 31 U/L (5-34); Albumin 4.1 g/dL (3.5-5.0); Alkaline Phosphatase 82 U/L (40-110); Anion Gap 16 mmol/L (10-20); BUN (Urea Nitrogen) 10 mg/dL (7.0-18.7); Bilirubin, Total 0.5 mg/dL (0.2-1.2); CK (CPK) 55 U/L (29-168); Calc. Creatinine Clearance 0 mL/min (70-130); Carbon Dioxide 21 mmol/L (22-29); Chloride 106 mmol/L (98-107); Estimated GFR 96; Globulin 2.3 g/dL (2.4-3.5); Glucose 114 mg/dL (70-105); Potassium 3.9 mmol/L (3.5-5.1); Protein, Total 6.4 g/dL (6.0-8.3); Sodium 139 mmol/L (136-145)
== END 2023-02-09 22:35 | disposition home or self-care (01) ==
LOC: MADERS 21:08
DX: M94.0 Chondrocostal junction syndrome [Tietze] (principal); D64.9 Anemia, unspecified; I10 Essential (primary) hypertension; Z87.891 Personal history of nicotine dependence; Z79.899 Other long term (current) drug therapy
CPT/HCPCS: 71045; 80053; 82550; 84484; 85025; 85379; 93005; J7120

== ENCOUNTER 2023-03-22 15:34 | Emergency (ER) | payer BC ==
[2023-03-22] MEDS ORDERED: Sodium Chloride 0.9% 1,000 ML ONE ×2 (16:53→17:57)
[2023-03-22] MEDS ORDERED: Ondansetron PF 4 MG/2 ML Vial ONE (16:53)
[2023-03-22 17:13] LABS: ALT (SGPT) 57 U/L (8-55); AST (SGOT) 31 U/L (5-34); Albumin 4.6 g/dL (3.5-5.0); Alkaline Phosphatase 62 U/L (40-110); Anion Gap 17 mmol/L (10-20); BUN (Urea Nitrogen) 14 mg/dL (7.0-18.7); Bilirubin, Total 1.3 mg/dL (0.2-1.2); Calc. Creatinine Clearance 0 mL/min (70-130); Calcium 9.6 mg/dL (7.8-10.44); Carbon Dioxide 22 mmol/L (22-29); Chloride 105 mmol/L (98-107); Estimated GFR 101; Glucose 110 mg/dL (70-105); Potassium 3.8 mmol/L (3.5-5.1); Protein, Total 7.6 g/dL (6.0-8.3); Sodium 140 mmol/L (136-145)
[2023-03-22 17:18] LABS: Hematocrit 34.6 % (36.0-47.0); Hemoglobin 11.8 g/dL (12.0-16.0); Mean Corpuscular Hemoglobin 31.2 pg (27.0-31.0); Mean Corpuscular Volume 91.7 fl (78.0-98.0); Mean Platelet Volume 7.5 fL (7.4-10.4); Platelet Count 248 10x3/uL (130-400); RBC Distribution Width 14.7 % (11.5-14.5); Red Blood Cell (RBC) Count 3.77 mill/uL (4.20-5.40); White Blood Cell (WBC) Count 9.3 10x3/uL (4.8-10.8)
[2023-03-22 17:28] LABS: Band 25 % (5-11)
[2023-03-22 17:29] LABS: Hypochromia SLIGHT = 6-15 cells (100X) (0-5/hpf); Lymphocytes 4 % (21-51); Monocytes 3 % (0-10); Platelet Adequacy Comment Appears Adequate
[2023-03-22] MEDS ORDERED: Promethazine HCl 25 MG/ML VIAL ONE (17:57)
== END 2023-03-22 19:18 | disposition home or self-care (01) ==
LOC: MADERS 15:34
DX: R11.2 Nausea with vomiting, unspecified (principal); E86.0 Dehydration; I10 Essential (primary) hypertension; Z87.891 Personal history of nicotine dependence
CPT/HCPCS: 80053; 83735; 85025; 94760; 96361; 96365; 96375; J2405; J2550; J7050

== ENCOUNTER 2023-04-23 11:53 | Emergency (ER) | payer BC | END 2023-04-23 12:59 | disposition home or self-care (01) | LOC: MADERS 11:53 | DX: I10 Essential (primary) hypertension (principal); R51.9 Headache, unspecified; Z87.891 Personal history of nicotine dependence | CPT/HCPCS: 99284 ==

== ENCOUNTER 2025-02-26 04:06 | Emergency (ER) | payer BC ==
[2025-02-26 05:30] LABS: Glucose, Urine (Dipstick) 100 mg/dL (Negative); Leukocyte Small (Negative); Protein, Urine (Dipstick) Negative (Neg-Trace); Specific Gravity, Urine 1.015 (1.005-1.030)
[2025-02-26 05:31] LABS: CAUTI Indications for Culture Dysuria,urgency,freq; RBC/HPF None Seen HPF (0-3); WBC/HPF 0-3 HPF (0-3)
[2025-02-26] MEDS ORDERED: Ibuprofen 800 MG TAB ONE (05:31)
[2025-02-26 05:32] LABS: Urine Culture Reflex No No
== END 2025-02-26 05:40 | disposition home or self-care (01) ==
LOC: MADERS 04:06
DX: N39.0 Urinary tract infection, site not specified (principal); I10 Essential (primary) hypertension; K21.9 Gastro-esophageal reflux disease without esophagitis; Z79.899 Other long term (current) drug therapy
CPT/HCPCS: 81001; 87086; 99283

== ENCOUNTER 2025-03-13 08:30 | Outpatient (CLI) | payer BC | END 2025-03-13 08:31 | disposition home or self-care (01) | LOC: MADRAD 08:30 | PROVIDERS: ATTEND Nurse Practitioner Family | DX: M19.041 Primary osteoarthritis, right hand (principal) ==

== ENCOUNTER 2025-04-22 12:16 | Emergency (ER) | payer BC ==
[2025-04-22] MEDS ORDERED: HYDROmorphone 0.5 MG/0.5 ML SYRINGE ONE ×2 (13:39→16:41)
[2025-04-22] MEDS ORDERED: Ondansetron PF 4 MG/2 ML Vial ONE (13:41)
== END 2025-04-22 19:01 | disposition home or self-care (01) ==
LOC: MADERS 12:16
DX: R10.20 Pelvic and perineal pain unspecified side (principal); I10 Essential (primary) hypertension; K21.9 Gastro-esophageal reflux disease without esophagitis; Z79.899 Other long term (current) drug therapy
CPT/HCPCS: J1171; J2405

== ENCOUNTER 2025-05-12 23:05 | Emergency (ER) | payer BC ==
[2025-05-12 23:52] LABS: #Basophils 0.1 thou/uL (0.0-0.2); #Eosinophils 0.1 thou/uL (0.0-0.7); #Lymphocytes 1.1 thou/uL (1.20-3.40); #Monocytes 1.0 thou/uL (0.11-0.59); #Neutrophils 4.5 thou/uL (1.40-6.50); %Basophils 1.6 % (0.0-1.0); %Eosinophils 1.1 % (0.0-10.0); %Lymphocytes 16.4 % (21.0-51.0); %Monocytes 14.1 % (0.0-10.0); %Neutrophils 66.8 % (42.0-75.0); Hematocrit 34.9 % (36.0-47.0); Hemoglobin 10.7 g/dL (12.0-16.0); Mean Corpuscular Hemoglobin 30.8 pg (27.0-31.0); Mean Corpuscular Volume 100.2 fl (78.0-98.0); Platelet Count 325 10x3/uL (130-400); Red Blood Cell (RBC) Count 3.48 mill/uL (4.20-5.40); White Blood Cell (WBC) Count 6.8 10x3/uL (4.8-10.8)
[2025-05-12] MEDS ORDERED: Ondansetron PF 4 MG/2 ML Vial ONE (23:53)
[2025-05-13 00:08] LABS: ALT (SGPT) 93 U/L (Less than 34); AST (SGOT) 142 U/L (11-34); Albumin 4.1 g/dL (3.1-4.5); Alkaline Phosphatase 125 U/L (40-110); Anion Gap 18 mmol/L (10-20); BUN (Urea Nitrogen) 19 mg/dL (9.8-20.1); Bilirubin, Total 0.8 mg/dL (0.3-1.2); Calc. Creatinine Clearance 0 mL/min (70-130); Calcium 9.3 mg/dL (7.8-10.44); Carbon Dioxide 20 mmol/L (22-29); Chloride 103 mmol/L (98-107); Globulin 4.1 g/dL (2.4-3.5); Glucose 93 mg/dL (70-105); Lipase 18 U/L (8-78); Magnesium 2.2 mg/dL (1.6-2.6); Potassium 4.1 mmol/L (3.5-5.1); Sodium 137 mmol/L (136-145)
[2025-05-13] MEDS ORDERED: diphenhydrAMINE 50 MG/ML VIAL ONE (01:23)
[2025-05-13] MEDS ORDERED: Dicyclomine 10 MG CAP ONE (01:23)
[2025-05-13] MEDS ORDERED: Droperidol 5 MG/2 ML VIAL ONE (01:23)
== END 2025-05-13 02:04 | disposition home or self-care (01) ==
LOC: MADERS 23:05
DX: R11.2 Nausea with vomiting, unspecified (principal); D64.9 Anemia, unspecified; R74.01 Elevation of levels of liver transaminase levels; I10 Essential (primary) hypertension
CPT/HCPCS: 74176; 80053; 83690; 83735; 85025; 94760; 96365; 96375; J1200; J1790; J2405; J2550; J7120